=== PATIENT | female | born 1950 | race Caucasian/White ===

== ENCOUNTER 2016-08-30 18:07 | Emergency (ER) | payer OTHER ==
[~2016-08-30] VITALS: Ht 152.4 cm; Wt 67.1 kg
[~2016-08-30 18:07] MED LIST: 384 PO; ALAVERT10 M1 PO; ALBUD HHN; ANT25 PO; ASPIR 8181 MG PO; ASPIRIN ADULT L81 M1 PO; ATA25 PO; BACLOFEN10 MG PO; BACO TOP; BACTRIM; BACTRIM DS1 TAB PO; CARVEDILOL12.5 M1 PO; COLACE100 MG PO; CORE25 PO; CYCLOBENZAPRINE10 M2 PO; ELTROXIN PO; ENALAPRIL20 MG PO; ESCITALOPRAM10 M1 PO; GLIPIZIDE2.5 M1; GLIPIZIDE5 MG PO; HIBICLENS118 ML TOP; HUMULIN R100 U/1 M1 SC; HYDROCHLOROTH12.5 M1 PO; HYDROXYZINE50 M1 PO; KEFLEX500 MG PO; LAC PO; LANTUS SOLOS100 U/M1 SQ; LEVOTHROID SOD0.1 MG PO; LEXAPRO10 MG PO; LIPI10 PO; LOTRIMIN AF1% TOP; MECLIZINE HYDRO25 M1 PO; METFORMIN HCL1000 MG PO; METFORMIN HCL850 MG PO; NEU300 PO; NORCO1 TA2 PO; NOVI SQ; NOVOLOG100 U/ML SC; OXYBUTYNIN CHLOR PO; OXYBUTYNIN CHLOR5 MG PO; OXYBUTYNIN5 M1 PO; PRI20 PO; SANOINT TOP; SUDOGEST PO; TRAMADOL50 MG PO; TRICOR145 M1 PO; VANCOMYCIN1 GM/200 M IV; ZES20 PO; ZOCOR20 MG PO
[2016-08-30 18:50] LABS: BASOPHIL % 0.3 % (0-2); PLATELET COUNT 173 x10^3mcL (130-400); RED CELL DISTRIBUTION WIDTH 12.7 % (11.5-14.5)
[2016-08-30 19:05] LABS: ALBUMIN 3.5 g/dL (3.4-5.0); BILIRUBIN TOTAL 0.7 mg/dL (0.20-1.00); CARBON DIOXIDE 31.6 mmol/L (21-32); CREATININE SERUM 1.1 mg/dL (0.6-1.0); POTASSIUM SERUM 4.1 mmol/L (3.5-5.1); TOTAL PROTEIN, SERUM 6.9 g/dL (6.4-8.2)
[2016-08-30 22:08] VITALS: BP 146/85
== END 2016-08-30 22:08 | disposition home or self-care (01) ==
LOC: ED 18:07
PROVIDERS: Emergency Medicine
DX: I16.0 Hypertensive urgency (principal); G44.209 Tension-type headache, unspecified, not intractable; M79.7 Fibromyalgia; G43.909 Migraine, unspecified, not intractable, without status migrainosus; M54.12 Radiculopathy, cervical region; N31.9 Neuromuscular dysfunction of bladder, unspecified
CPT/HCPCS: 83880; J2765

== ENCOUNTER → 2016-09-29 | Emergency (ER) | payer OTHER ==
[2016-09-30] VITALS: BP 155/87
== END ==
LOC: ED 20:37
DX: S83.91XA Sprain of unspecified site of right knee, initial encounter (principal); S83.92XA Sprain of unspecified site of left knee, initial encounter; M79.675 Pain in left toe(s); M79.674 Pain in right toe(s); I11.0 Hypertensive heart disease with heart failure; E11.9 Type 2 diabetes mellitus without complications; J44.9 Chronic obstructive pulmonary disease, unspecified; K21.9 Gastro-esophageal reflux disease without esophagitis; K58.9 Irritable bowel syndrome, unspecified; H40.9 Unspecified glaucoma; G62.9 Polyneuropathy, unspecified; M54.12 Radiculopathy, cervical region; M79.7 Fibromyalgia; M19.90 Unspecified osteoarthritis, unspecified site; G43.909 Migraine, unspecified, not intractable, without status migrainosus; Z79.899 Other long term (current) drug therapy; Z88.0 Allergy status to penicillin; Z88.1 Allergy status to other antibiotic agents; W19.XXXA Unspecified fall, initial encounter; Y93.89 Activity, other specified; Y92.89 Other specified places as the place of occurrence of the external cause; Y99.8 Other external cause status

== ENCOUNTER 2016-10-28 13:28 | Inpatient (IN) | payer OTHER ==
[~2016-10-28] VITALS: Ht 154.9 cm; Wt 77.1 kg
[2016-10-28 13:53] LABS: BASOPHIL % 0.5 % (0-2); PLATELET COUNT 286 x10^3mcL (130-400); RED CELL DISTRIBUTION WIDTH 13.6 % (11.5-14.5)
[2016-10-28 14:04] LABS: AMPHETAMINE QUAL UR NONE DETECTED (NEG <=1000)
[2016-10-28 14:18] LABS: ALKALINE PHOSPHATASE 163 U/L (46-116); ALT/SGPT 37 U/L (14-59); AST/SGOT 44 U/L (15-37); BILIRUBIN TOTAL 1.36 mg/dL (0.20-1.00); CALCIUM 8.7 mg/dL (8.5-10.1); CARBON DIOXIDE 10.9 mmol/L (21-32); CHLORIDE SERUM 86 mmol/L (98-107); CHOLESTEROL 173 mg/dL (<200); CREATININE SERUM 1.4 mg/dL (0.6-1.0); GFR1 40 mL/min; POTASSIUM SERUM 5.5 mmol/L (3.5-5.1); TOTAL PROTEIN, SERUM 6.5 g/dL (6.4-8.2)
[2016-10-28 14:22] LABS: ALBUMIN 3.1 g/dL (3.4-5.0); GLUCOSE SERUM 662 mg/dL (74-106); SODIUM SERUM 123 mmol/L (136-145)
[2016-10-28 15:47] LABS: CHOLESTEROL/HDL RATIO 4.4
[2016-10-28 15:58] LABS: T3 TOTAL 0.8 ng/mL
[2016-10-28 16:04] LABS: FREE T4 1.7 ng/dL (0.76-1.46); FREE THYROXINE INDEX 3.5 ug/dL (1.4-4.5); T4(THYROXINE) 9.3 ug/dL (4.7-13.3)
[2016-10-28 16:17] VITALS: BP 116/52
[2016-10-28 16:20] VITALS: BP 116/52
[2016-10-28 17:03] LABS: CALCIUM 7.7 mg/dL (8.5-10.1); CARBON DIOXIDE 17.4 mmol/L (21-32); CREATININE SERUM 1.2 mg/dL (0.6-1.0); MAGNESIUM 1.4 mg/dL (1.8-2.4); PHOSPHOROUS 3.2 mg/dL (2.5-4.9); POTASSIUM SERUM 3.8 mmol/L (3.5-5.1)
[2016-10-28 17:29] VITALS: BP 116/52
[2016-10-28 18:31] VITALS: BP 115/44
[2016-10-28 20:36] LABS: CARBON DIOXIDE 26.5 mmol/L (21-32); CREATININE SERUM 1.1 mg/dL (0.6-1.0); MAGNESIUM 1.5 mg/dL (1.8-2.4); POTASSIUM SERUM 3.6 mmol/L (3.5-5.1)
[2016-10-28 21:47] VITALS: BP 138/53
[2016-10-29 00:28] LABS: CALCIUM 8.2 mg/dL (8.5-10.1); MAGNESIUM 1.5 mg/dL (1.8-2.4); PHOSPHOROUS 2.3 mg/dL (2.5-4.9); POTASSIUM SERUM 3.1 mmol/L (3.5-5.1)
[2016-10-29 00:29] LABS: BILIRUBIN DIRECT 0.33 mg/dL (0.0-0.2); BILIRUBIN TOTAL 0.8 mg/dL (0.20-1.00)
[2016-10-29 06:36] VITALS: BP 135/64
[2016-10-29 09:32] VITALS: BP 130/51
[2016-10-29 10:51] LABS: UA SPECIFIC GRAVITY >=1.030 (1.005-1.035); microscopic required? YES; urine erythrocyte 2+ (NEGATIVE)
[2016-10-29 11:14] LABS: BASOPHIL % 0.2 % (0-2); RED CELL DISTRIBUTION WIDTH 13.9 % (11.5-14.5)
[2016-10-29 11:34] LABS: PLATELET COUNT 120 x10^3mcL (130-400)
[2016-10-29 13:34] VITALS: BP 88/40
[2016-10-29 17:39] VITALS: BP 122/43
[2016-10-29 21:16] VITALS: BP 132/69
[2016-10-30] VITALS (7 sets, daily range): BP systolic 136–188; BP diastolic 49–86
[2016-10-30 06:06] LABS: BASOPHIL % 0.3 % (0-2); RED CELL DISTRIBUTION WIDTH 14.1 % (11.5-14.5)
[2016-10-30 06:08] LABS: PLATELET COUNT 113 x10^3mcL (130-400)
[2016-10-30 06:34] LABS: CALCIUM 7.8 mg/dL (8.5-10.1); CARBON DIOXIDE 23.8 mmol/L (21-32); CHLORIDE SERUM 103 mmol/L (98-107); CREATININE SERUM 0.9 mg/dL (0.6-1.0); GFR1 > 60 mL/min; GLUCOSE SERUM 281 mg/dL (74-106); PHOSPHOROUS 2.9 mg/dL (2.5-4.9); POTASSIUM SERUM 3.2 mmol/L (3.5-5.1); SODIUM SERUM 135 mmol/L (136-145)
[2016-10-30 20:02] LABS: CALCIUM 7.8 mg/dL (8.5-10.1); CARBON DIOXIDE 26.1 mmol/L (21-32); CHLORIDE SERUM 104 mmol/L (98-107); CREATININE SERUM 0.8 mg/dL (0.6-1.0); GFR1 > 60 mL/min; GLUCOSE SERUM 334 mg/dL (74-106); POTASSIUM SERUM 4.3 mmol/L (3.5-5.1); SODIUM SERUM 135 mmol/L (136-145)
[2016-10-31 05:46] VITALS: BP 174/55
[2016-10-31 06:45] LABS: CALCIUM 8.1 mg/dL (8.5-10.1); CARBON DIOXIDE 23.9 mmol/L (21-32); CHLORIDE SERUM 110 mmol/L (98-107); CREATININE SERUM 0.8 mg/dL (0.6-1.0); GFR1 > 60 mL/min; GLUCOSE SERUM 271 mg/dL (74-106); POTASSIUM SERUM 4.3 mmol/L (3.5-5.1); SODIUM SERUM 142 mmol/L (136-145)
[2016-10-31 10:07] VITALS: BP 146/65
[2016-10-31 14:50] VITALS: BP 158/56
[2016-10-31 17:40] VITALS: BP 152/53
[2016-10-31 22:34] VITALS: BP 122/83
[2016-11-01 06:37] VITALS: BP 165/62
[2016-11-01 08:03] LABS: BASOPHIL % 0.3 % (0-2); RED CELL DISTRIBUTION WIDTH 14.1 % (11.5-14.5)
[2016-11-01 08:07] LABS: PLATELET COUNT 116 x10^3mcL (130-400)
[2016-11-01 08:16] LABS: CALCIUM 8.3 mg/dL (8.5-10.1); CARBON DIOXIDE 26.1 mmol/L (21-32); CHLORIDE SERUM 113 mmol/L (98-107); CREATININE SERUM 0.7 mg/dL (0.6-1.0); GFR1 > 60 mL/min; GLUCOSE SERUM 213 mg/dL (74-106); MAGNESIUM 1.6 mg/dL (1.8-2.4); POTASSIUM SERUM 4.2 mmol/L (3.5-5.1); SODIUM SERUM 145 mmol/L (136-145)
[2016-11-01 13:36] VITALS: BP 171/74
[2016-11-01 13:54] VITALS: BP 171/74
[2016-11-01 17:08] VITALS: BP 126/45
[2016-11-01 21:31] VITALS: BP 142/67
[2016-11-02 06:06] VITALS: BP 178/79
[2016-11-02 10:29] LABS: BASOPHIL % 0.4 % (0-2); PLATELET COUNT 145 x10^3mcL (130-400)
[2016-11-02 10:30] VITALS: BP 134/48
[2016-11-02 10:37] LABS: RED CELL DISTRIBUTION WIDTH 14.6 % (11.5-14.5)
[2016-11-02 10:42] LABS: CALCIUM 7.9 mg/dL (8.5-10.1); CARBON DIOXIDE 26.8 mmol/L (21-32); CHLORIDE SERUM 112 mmol/L (98-107); CREATININE SERUM 0.8 mg/dL (0.6-1.0); GFR1 > 60 mL/min; GLUCOSE SERUM 178 mg/dL (74-106); MAGNESIUM 1.6 mg/dL (1.8-2.4); POTASSIUM SERUM 4.3 mmol/L (3.5-5.1); SODIUM SERUM 145 mmol/L (136-145)
[2016-11-02 13:31] VITALS: BP 181/64
[2016-11-02 17:09] VITALS: BP 150/60
[2016-11-02 21:27] VITALS: BP 126/50
[2016-11-03 05:43] VITALS: BP 152/51
[2016-11-03 10:30] VITALS: BP 188/71
[2016-11-03 14:20] VITALS: BP 163/67
[2016-11-03 17:26] VITALS: Ht 154.9 cm; Wt 77.1 kg
[2016-11-03 18:10] VITALS: BP 185/65
[2016-11-03 21:50] VITALS: BP 139/57
[2016-11-04 06:05] VITALS: BP 136/59
[2016-11-04 07:27] LABS: CALCIUM 8.4 mg/dL (8.5-10.1); CARBON DIOXIDE 29.4 mmol/L (21-32); CHLORIDE SERUM 108 mmol/L (98-107); CREATININE SERUM 0.7 mg/dL (0.6-1.0); GFR1 > 60 mL/min; MAGNESIUM 1.7 mg/dL (1.8-2.4); POTASSIUM SERUM 3.9 mmol/L (3.5-5.1); SODIUM SERUM 140 mmol/L (136-145)
[2016-11-04 07:34] LABS: GLUCOSE SERUM 59 mg/dL (74-106)
[2016-11-04 10:07] VITALS: BP 158/63
[2016-11-04 18:12] VITALS: BP 180/76
[2016-11-04 21:11] VITALS: BP 173/72
[2016-11-04 22:26] VITALS: BP 116/78; BP 118/68
[2016-11-05 06:11] VITALS: BP 143/53
[2016-11-05 06:57] LABS: BASOPHIL % 0.5 % (0-2); PLATELET COUNT 175 x10^3mcL (130-400)
[2016-11-05 07:00] LABS: RED CELL DISTRIBUTION WIDTH 14.6 % (11.5-14.5)
[2016-11-05 07:04] LABS: CALCIUM 8.1 mg/dL (8.5-10.1); CARBON DIOXIDE 30.9 mmol/L (21-32); CHLORIDE SERUM 103 mmol/L (98-107); CREATININE SERUM 0.7 mg/dL (0.6-1.0); GFR1 > 60 mL/min; GLUCOSE SERUM 173 mg/dL (74-106); MAGNESIUM 1.9 mg/dL (1.8-2.4); PHOSPHOROUS 2.8 mg/dL (2.5-4.9); POTASSIUM SERUM 3.9 mmol/L (3.5-5.1); SODIUM SERUM 136 mmol/L (136-145)
[2016-11-05 09:49] VITALS: BP 137/54
[2016-11-05 18:12] VITALS: BP 197/82
[2016-11-05 19:14] VITALS: BP 121/53
[2016-11-05 21:15] VITALS: BP 136/61
[2016-11-06 06:45] VITALS: BP 165/65
[2016-11-06 06:50] VITALS: BP 242/92
[2016-11-06 07:07] VITALS: BP 125/49
[2016-11-06 09:53] VITALS: BP 106/47
[2016-11-06] MEDS ORDERED: LAC PO (10:00)
[2016-11-06] MEDS ORDERED: BACDS PO (10:00)
[2016-11-06] MEDS ORDERED: CORE25 PO (10:04)
[2016-11-06] MEDS ORDERED: MYCP TOP (10:09)
[2016-11-06 13:13] VITALS: BP 147/45
[2016-11-06 13:49] VITALS: BP 147/45
== END 2016-11-06 16:10 | DRG 853 ==
LOC: ED 13:28 → DU 14:56 → MU 14:56 → DU 15:58 → MU 11-03 21:11
PROVIDERS: Family Medicine; Specialist; ADMIT Family Medicine
PROC: 0HBRXZZ Excision of Toe Nail, External Approach (ICD-10-PCS; principal; 2016-10-30)
PROC: 0HBNXZZ Excision of Left Foot Skin, External Approach (ICD-10-PCS; principal; 2016-10-30)
PROC: 0JBP0ZZ Excision of Left Lower Leg Subcutaneous Tissue and Fascia, Open Approach (ICD-10-PCS; 2016-10-31)
DX: A41.9 Sepsis, unspecified organism (principal); J96.00 Acute respiratory failure, unspecified whether with hypoxia or hypercapnia; G93.41 Metabolic encephalopathy; N17.0 Acute kidney failure with tubular necrosis; E11.00 Type 2 diabetes mellitus with hyperosmolarity without nonketotic hyperglycemic-hyperosmolar coma (NKHHC); L97.829 Non-pressure chronic ulcer of other part of left lower leg with unspecified severity; N39.0 Urinary tract infection, site not specified; E87.1 Hypo-osmolality and hyponatremia; E87.2 Acidosis; E87.3 Alkalosis; E44.0 Moderate protein-calorie malnutrition; E11.622 Type 2 diabetes mellitus with other skin ulcer; E11.51 Type 2 diabetes mellitus with diabetic peripheral angiopathy without gangrene; E11.40 Type 2 diabetes mellitus with diabetic neuropathy, unspecified; E11.65 Type 2 diabetes mellitus with hyperglycemia; R65.20 Severe sepsis without septic shock; L30.4 Erythema intertrigo; B35.1 Tinea unguium; L84 Corns and callosities; E87.5 Hyperkalemia; I16.0 Hypertensive urgency; M17.12 Unilateral primary osteoarthritis, left knee; E03.9 Hypothyroidism, unspecified; Z79.82 Long term (current) use of aspirin; Z79.4 Long term (current) use of insulin; Z79.84 Long term (current) use of oral hypoglycemic drugs; Z91.14 Patient's other noncompliance with medication regimen; Z22.322 Carrier or suspected carrier of Methicillin resistant Staphylococcus aureus
CPT/HCPCS: 36600; 82962; 83880; 84439; 97110-GP; 97116-GP; 97530-GP; G0480; J0360; J1815; J1956; J2001; J2405; J3370; J3475; J3490; J7030; J7613; Q0092

== ENCOUNTER 2017-01-26 12:16 | Inpatient (IN) | payer OTHER ==
[~2017-01-26] VITALS: Ht 152.4 cm; Wt 67.2 kg
[~2017-01-26 12:16] MED LIST changes: +BACDS PO; +MYCP TOP
[2017-01-26 14:01] LABS: BASOPHIL % 0.1 % (0-2); PLATELET COUNT 137 x10^3mcL (130-400); RED CELL DISTRIBUTION WIDTH 13.4 % (11.5-14.5)
[2017-01-26 14:35] LABS: CALCIUM 8.8 mg/dL (8.5-10.1); CARBON DIOXIDE 29.4 mmol/L (21-32); CHLORIDE SERUM 100 mmol/L (98-107); CREATININE SERUM 0.9 mg/dL (0.6-1.0); GFR1 > 60 mL/min; GLUCOSE SERUM 427 mg/dL (74-106); POTASSIUM SERUM 4.4 mmol/L (3.5-5.1); SODIUM SERUM 135 mmol/L (136-145)
[2017-01-26 14:47] LABS: ALKALINE PHOSPHATASE 171 U/L (46-116); ALT/SGPT 21 U/L (14-59); AST/SGOT 18 U/L (15-37); BILIRUBIN TOTAL 0.6 mg/dL (0.20-1.00); CHOLESTEROL 185 mg/dL (<200); HDL CHOLESTEROL 53 mg/dL (40-60); MAGNESIUM 1.8 mg/dL (1.8-2.4); PHOSPHOROUS 3.3 mg/dL (2.5-4.9); TOTAL PROTEIN, SERUM 6.6 g/dL (6.4-8.2)
[2017-01-26 14:48] LABS: ALBUMIN 3.2 g/dL (3.4-5.0)
[2017-01-26 15:57] VITALS: BP 165/66
[2017-01-26 16:06] LABS: CHOLESTEROL/HDL RATIO 3.4
[2017-01-26 16:14] LABS: T3 TOTAL 1.02 ng/mL
[2017-01-26 16:18] LABS: FREE T4 1.26 ng/dL (0.76-1.46); FREE THYROXINE INDEX 3.8 ug/dL (1.4-4.5); T4(THYROXINE) 9.4 ug/dL (4.7-13.3)
[2017-01-26 16:48] VITALS: Ht 152.4 cm; Wt 67.2 kg
[2017-01-26 18:00] LABS: microscopic required? YES; urine erythrocyte NEGATIVE (NEGATIVE)
[2017-01-26] MEDS ORDERED: LANTI SQ (18:43)
[2017-01-26 20:43] VITALS: BP 186/67
[2017-01-26 23:42] VITALS: BP 192/87
[2017-01-27 01:57] VITALS: BP 107/55
[2017-01-27 05:28] VITALS: BP 138/56
[2017-01-27 06:31] LABS: CALCIUM 8.6 mg/dL (8.5-10.1); CARBON DIOXIDE 26.8 mmol/L (21-32); CHLORIDE SERUM 104 mmol/L (98-107); CREATININE SERUM 0.9 mg/dL (0.6-1.0); GFR1 > 60 mL/min; GLUCOSE SERUM 119 mg/dL (74-106); POTASSIUM SERUM 3.9 mmol/L (3.5-5.1); SODIUM SERUM 138 mmol/L (136-145)
[2017-01-27 08:53] VITALS: BP 211/71
[2017-01-27 13:55] VITALS: BP 157/63
[2017-01-27 17:08] VITALS: BP 119/52
[2017-01-27 22:28] VITALS: BP 162/51
[2017-01-28 06:11] VITALS: BP 215/77
[2017-01-28 06:38] LABS: BASOPHIL % 0.4 % (0-2); PLATELET COUNT 143 x10^3mcL (130-400); RED CELL DISTRIBUTION WIDTH 13.5 % (11.5-14.5)
[2017-01-28 06:42] LABS: CALCIUM 8.8 mg/dL (8.5-10.1); CARBON DIOXIDE 26.8 mmol/L (21-32); POTASSIUM SERUM 4.7 mmol/L (3.5-5.1)
[2017-01-28 06:53] VITALS: BP 117/47
[2017-01-28 08:30] VITALS: BP 124/61
[2017-01-28 14:00] VITALS: BP 156/57
[2017-01-28 18:18] VITALS: BP 162/90
[2017-01-28 20:48] VITALS: BP 157/70
[2017-01-29 05:30] VITALS: BP 195/76
[2017-01-29 06:14] LABS: CALCIUM 8.6 mg/dL (8.5-10.1); CARBON DIOXIDE 28.6 mmol/L (21-32); POTASSIUM SERUM 4.6 mmol/L (3.5-5.1)
[2017-01-29 10:31] VITALS: BP 169/87
[2017-01-29 11:34] VITALS: BP 178/95
[2017-01-29 14:10] VITALS: BP 176/72
[2017-01-29 17:24] VITALS: BP 146/72
[2017-01-29 21:23] VITALS: BP 182/81
[2017-01-30] VITALS (10 sets, daily range): BP systolic 95–195; BP diastolic 40–94
[2017-01-30 06:06] LABS: CALCIUM 8.6 mg/dL (8.5-10.1); CARBON DIOXIDE 28.8 mmol/L (21-32); CHLORIDE SERUM 105 mmol/L (98-107); CREATININE SERUM 0.8 mg/dL (0.6-1.0); GFR1 > 60 mL/min; GLUCOSE SERUM 213 mg/dL (74-106); POTASSIUM SERUM 4.2 mmol/L (3.5-5.1); SODIUM SERUM 140 mmol/L (136-145)
[2017-01-30 06:08] LABS: ALBUMIN 2.7 g/dL (3.4-5.0)
[2017-01-30] MEDS ORDERED: ISO10 PO (14:45)
[2017-01-30] MEDS ORDERED: NOR10 PO (15:04)
== END 2017-01-30 18:55 | DRG 40 ==
LOC: ED 12:16 → DU 14:59
PROVIDERS: Emergency Medicine; Family Medicine; ADMIT Family Medicine
PROC: 0JBQ0ZZ Excision of Right Foot Subcutaneous Tissue and Fascia, Open Approach (ICD-10-PCS; principal; 2017-01-26)
DX: I67.4 Hypertensive encephalopathy (principal); N17.0 Acute kidney failure with tubular necrosis; E43 Unspecified severe protein-calorie malnutrition; E87.1 Hypo-osmolality and hyponatremia; E11.621 Type 2 diabetes mellitus with foot ulcer; E11.42 Type 2 diabetes mellitus with diabetic polyneuropathy; L97.519 Non-pressure chronic ulcer of other part of right foot with unspecified severity; E11.51 Type 2 diabetes mellitus with diabetic peripheral angiopathy without gangrene; E11.65 Type 2 diabetes mellitus with hyperglycemia; M21.621 Bunionette of right foot; M71.22 Synovial cyst of popliteal space [Baker], left knee; M17.12 Unilateral primary osteoarthritis, left knee; E78.5 Hyperlipidemia, unspecified; E03.9 Hypothyroidism, unspecified; F32.9 Major depressive disorder, single episode, unspecified; Z68.29 Body mass index [BMI] 29.0-29.9, adult; Z79.4 Long term (current) use of insulin; Z79.82 Long term (current) use of aspirin
CPT/HCPCS: 82962; 83880; 84439; 97110-GP; 97116-GP; 97530-GP; J0360; J1815; J1885; J2405; J2800; J3010; J7030; J7613; J7620; Q0092; Q0163

== ENCOUNTER 2017-09-26 11:44 | Inpatient (IN) | payer OTHER ==
[~2017-09-26] VITALS: Ht 152.4 cm; Wt 108.9 kg
[~2017-09-26 11:44] MED LIST changes: +ISO10 PO; +LANTI SQ; +NOR10 PO
[2017-09-26 12:41] LABS: BASOPHIL % 0.4 % (0-2); PLATELET COUNT 208 x10^3mcL (130-400)
[2017-09-26 12:42] LABS: RED CELL DISTRIBUTION WIDTH 14.7 % (11.5-14.5)
[2017-09-26 12:52] LABS: CALCIUM 8.6 mg/dL (8.5-10.1); CARBON DIOXIDE 27.8 mmol/L (21-32); CHLORIDE SERUM 106 mmol/L (98-107); CREATININE SERUM 0.9 mg/dL (0.6-1.0); GFR1 > 60 mL/min; GLUCOSE SERUM 140 mg/dL (74-106); POTASSIUM SERUM 4.9 mmol/L (3.5-5.1); SODIUM SERUM 138 mmol/L (136-145)
[2017-09-26 12:57] LABS: ALKALINE PHOSPHATASE 138 U/L (46-116); ALT/SGPT 25 U/L (14-59); AST/SGOT 33 U/L (15-37); BILIRUBIN TOTAL 0.55 mg/dL (0.20-1.00); LIPASE 35 IU/L (73-393); TOTAL PROTEIN, SERUM 6.4 g/dL (6.4-8.2)
[2017-09-26 13:38] LABS: microscopic required? YES; urine erythrocyte TRACE (NEGATIVE)
[2017-09-26] MEDS ORDERED: BACLOFEN10 MG PO (15:06)
[2017-09-26] MEDS ORDERED: GLIPIZIDE5 M2 PO (15:07)
[2017-09-26] MEDS ORDERED: LEADER MELATONIN5 MG PO (15:09)
[2017-09-26] MEDS ORDERED: LANTI SQ (15:09)
[2017-09-26] MEDS ORDERED: COSOPT OCUMETER10 ML OU (15:13)
[2017-09-26] MEDS ORDERED: KETOROLAC TROMET5 M1 OD (15:16)
[2017-09-26] MEDS ORDERED: PRED FORTE1 ML OD (15:18)
[2017-09-26 16:24] VITALS: BP 97/73
[2017-09-26 16:32] LABS: MAGNESIUM 2.1 mg/dL (1.8-2.4); PHOSPHOROUS 3.7 mg/dL (2.5-4.9)
[2017-09-26 16:36] LABS: CHOLESTEROL/HDL RATIO 2.4; FREE T4 1.41 ng/dL (0.76-1.46); FREE THYROXINE INDEX 3.6 ug/dL (1.4-4.5); T4(THYROXINE) 9.6 ug/dL (4.7-13.3)
[2017-09-26 16:50] LABS: T3 TOTAL 0.81 ng/mL
[2017-09-26 17:36] VITALS: BP 97/73
[2017-09-26 17:41] LABS: AMPHETAMINE QUAL UR NONE DETECTED (NEG <=1000)
[2017-09-26 18:06] VITALS: BP 136/53
[2017-09-26 21:10] VITALS: BP 151/60
[2017-09-27 06:00] VITALS: BP 122/54
[2017-09-27 06:36] LABS: BASOPHIL % 0.4 % (0-2); PLATELET COUNT 220 x10^3mcL (130-400); RED CELL DISTRIBUTION WIDTH 15.1 % (11.5-14.5)
[2017-09-27 06:53] LABS: CALCIUM 8.7 mg/dL (8.5-10.1); CARBON DIOXIDE 28.8 mmol/L (21-32); CHLORIDE SERUM 108 mmol/L (98-107); CREATININE SERUM 0.9 mg/dL (0.6-1.0); GFR1 > 60 mL/min; GLUCOSE SERUM 63 mg/dL (74-106); MAGNESIUM 2.1 mg/dL (1.8-2.4); PHOSPHOROUS 3.8 mg/dL (2.5-4.9); POTASSIUM SERUM 4.5 mmol/L (3.5-5.1); SODIUM SERUM 142 mmol/L (136-145)
[2017-09-27 07:54] VITALS: Ht 152.4 cm; Wt 108.9 kg
[2017-09-27 10:34] VITALS: BP 147/62
[2017-09-27 14:00] VITALS: BP 146/64
[2017-09-27 18:17] VITALS: BP 135/71
[2017-09-27 20:51] VITALS: BP 148/68
[2017-09-28 05:32] VITALS: BP 125/63
[2017-09-28 07:19] LABS: BASOPHIL % 0.3 % (0-2); CALCIUM 8.4 mg/dL (8.5-10.1); CHLORIDE SERUM 107 mmol/L (98-107); CREATININE SERUM 0.9 mg/dL (0.6-1.0); GFR1 > 60 mL/min; GLUCOSE SERUM 76 mg/dL (74-106); PHOSPHOROUS 4.4 mg/dL (2.5-4.9); PLATELET COUNT 198 x10^3mcL (130-400); POTASSIUM SERUM 4.2 mmol/L (3.5-5.1); RED CELL DISTRIBUTION WIDTH 14.5 % (11.5-14.5); SODIUM SERUM 141 mmol/L (136-145)
[2017-09-28 08:41] VITALS: BP 143/66
[2017-09-28 13:10] VITALS: BP 123/59
[2017-09-28 17:06] VITALS: BP 129/63
[2017-09-28 20:59] VITALS: BP 150/67
[2017-09-29 06:02] LABS: BILIRUBIN TOTAL 0.51 mg/dL (0.20-1.00); CALCIUM 8.5 mg/dL (8.5-10.1); CARBON DIOXIDE 29.8 mmol/L (21-32); POTASSIUM SERUM 4.4 mmol/L (3.5-5.1)
[2017-09-29 06:14] LABS: ALBUMIN 2.8 g/dL (3.4-5.0); TOTAL PROTEIN, SERUM 6.1 g/dL (6.4-8.2)
[2017-09-29 06:23] VITALS: BP 138/72
[2017-09-29 06:58] LABS: BASOPHIL % 0.3 % (0-2); PLATELET COUNT 176 x10^3mcL (130-400)
[2017-09-29 07:13] LABS: RED CELL DISTRIBUTION WIDTH 14.7 % (11.5-14.5)
[2017-09-29 08:25] VITALS: BP 170/83
[2017-09-29 12:43] VITALS: BP 140/68
[2017-09-29 14:27] VITALS: BP 123/73
[2017-09-29 16:49] VITALS: BP 120/71
[2017-09-29 21:23] VITALS: BP 100/58
[2017-09-30 05:21] VITALS: BP 111/66
[2017-09-30 06:42] LABS: CALCIUM 8.4 mg/dL (8.5-10.1); CARBON DIOXIDE 33.1 mmol/L (21-32); POTASSIUM SERUM 4.6 mmol/L (3.5-5.1)
[2017-09-30 06:50] LABS: BASOPHIL % 0.4 % (0-2); PLATELET COUNT 196 x10^3mcL (130-400)
[2017-09-30 07:07] LABS: RED CELL DISTRIBUTION WIDTH 14.8 % (11.5-14.5)
[2017-09-30 10:26] VITALS: BP 173/79
[2017-09-30 12:26] VITALS: BP 125/68
[2017-09-30 13:05] VITALS: BP 125/68
[2017-09-30 16:35] VITALS: BP 146/65
[2017-09-30 20:31] VITALS: BP 110/65
[2017-10-01 04:34] VITALS: BP 145/70
[2017-10-01 06:31] LABS: CALCIUM 8.5 mg/dL (8.5-10.1); CARBON DIOXIDE 30.5 mmol/L (21-32); CHLORIDE SERUM 105 mmol/L (98-107); CREATININE SERUM 0.9 mg/dL (0.6-1.0); GFR1 > 60 mL/min; GLUCOSE SERUM 154 mg/dL (74-106); POTASSIUM SERUM 4.1 mmol/L (3.5-5.1); SODIUM SERUM 140 mmol/L (136-145)
[2017-10-01 06:35] LABS: BASOPHIL % 0.2 % (0-2); PLATELET COUNT 189 x10^3mcL (130-400)
[2017-10-01 06:46] LABS: RED CELL DISTRIBUTION WIDTH 14.6 % (11.5-14.5)
[2017-10-01] MEDS ORDERED: ROC1I IM ×2 (08:40→16:34)
[2017-10-01] MEDS ORDERED: LAC PO (08:41)
[2017-10-01] MEDS ORDERED: LEVEMIR100 U/M1 SQ (08:50)
[2017-10-01 10:44] VITALS: BP 108/53
[2017-10-01 11:44] VITALS: BP 108/53
[2017-10-01 13:51] VITALS: BP 148/50
[2017-10-01] MEDS ORDERED: ROC1I IV (16:46)
== END 2017-10-01 17:30 | DRG 291 ==
LOC: ED 11:44 → DU 15:06
PROVIDERS: Emergency Medicine; Family Medicine
DX: I11.0 Hypertensive heart disease with heart failure (principal); N17.0 Acute kidney failure with tubular necrosis; L03.311 Cellulitis of abdominal wall; J44.1 Chronic obstructive pulmonary disease with (acute) exacerbation; E44.0 Moderate protein-calorie malnutrition; Z68.42 Body mass index [BMI] 45.0-49.9, adult; E66.2 Morbid (severe) obesity with alveolar hypoventilation; J90 Pleural effusion, not elsewhere classified; I50.43 Acute on chronic combined systolic (congestive) and diastolic (congestive) heart failure; E03.9 Hypothyroidism, unspecified; F32.9 Major depressive disorder, single episode, unspecified; M19.90 Unspecified osteoarthritis, unspecified site; E11.65 Type 2 diabetes mellitus with hyperglycemia; Z90.89 Acquired absence of other organs; Z88.8 Allergy status to other drugs, medicaments and biological substances; Z88.0 Allergy status to penicillin; Z90.710 Acquired absence of both cervix and uterus; Z79.4 Long term (current) use of insulin; M79.7 Fibromyalgia; K21.9 Gastro-esophageal reflux disease without esophagitis; G43.909 Migraine, unspecified, not intractable, without status migrainosus; Z83.3 Family history of diabetes mellitus; Z82.3 Family history of stroke; Z82.49 Family history of ischemic heart disease and other diseases of the circulatory system; H40.9 Unspecified glaucoma; H26.9 Unspecified cataract; R31.9 Hematuria, unspecified; E78.5 Hyperlipidemia, unspecified
CPT/HCPCS: 82962; 83880; 84439; 97110-GP; 97116-GP; 97530-GP; J0696; J1644; J1815; J1940; J2270; J2405; J7040; J7620; J8597; P9047; Q0092; Q9967

== ENCOUNTER 2017-11-10 14:59 | Inpatient (IN) | payer OTHER ==
[~2017-11-10] VITALS: Ht 152.4 cm; Wt 92.2 kg
[~2017-11-10 14:59] MED LIST changes: +COSOPT OCUMETER10 ML OU; +GLIPIZIDE5 M2 PO; +KETOROLAC TROMET5 M1 OD; +LEADER MELATONIN5 MG PO; +LEVEMIR100 U/M1 SQ; -LEVOTHROID SOD0.1 MG PO; +PRED FORTE1 ML OD; +ROC1I IM; +ROC1I IV; +[UNRECOGNIZED DRUG - OTHER]
[2017-11-10 16:22] LABS: PLATELET COUNT 206 x10^3mcL (130-400)
[2017-11-10 16:33] LABS: microscopic required? YES; urine erythrocyte 3+ (NEGATIVE)
[2017-11-10 16:39] LABS: BILIRUBIN TOTAL 0.7 mg/dL (0.20-1.00); CALCIUM 8.3 mg/dL (8.5-10.1); CARBON DIOXIDE 20.9 mmol/L (21-32); POTASSIUM SERUM 4.5 mmol/L (3.5-5.1); TOTAL PROTEIN, SERUM 6.2 g/dL (6.4-8.2)
[2017-11-10 16:43] LABS: ALBUMIN 1.7 g/dL (3.4-5.0)
[2017-11-10 16:46] LABS: RED CELL DISTRIBUTION WIDTH 16.3 % (11.5-14.5)
[2017-11-10] MEDS ORDERED: LIPI10 PO (17:16)
[2017-11-10 18:11] LABS: SEGMENTED NEUTROPHILS 88 % (37-75)
[2017-11-10 18:12] LABS: BAND NEUTROPHIL 3 % (0-10); MONOCYTE 4 % (0-7)
[2017-11-10 18:13] LABS: rbc morphology (normal/abnorm) ABNORMAL (NORMAL)
[2017-11-10 18:14] LABS: PLATELET MORPHOLOGY PLATELETS NORMAL
[2017-11-10 18:42] LABS: MAGNESIUM 2.1 mg/dL (1.8-2.4); PHOSPHOROUS 4.8 mg/dL (2.5-4.9)
[2017-11-10 18:49] LABS: FREE T4 1.23 ng/dL (0.76-1.46); FREE THYROXINE INDEX 2.1 ug/dL (1.4-4.5); T4(THYROXINE) 5.4 ug/dL (4.7-13.3)
[2017-11-10 19:33] VITALS: BP 96/55
[2017-11-10 20:03] LABS: CHOLESTEROL/HDL RATIO 11.3
[2017-11-10 20:58] LABS: T3 TOTAL 0.37 ng/mL
[2017-11-10 22:30] VITALS: BP 105/58
[2017-11-10 23:00] VITALS: BP 106/60
[2017-11-11 03:05] VITALS: BP 107/69
[2017-11-11 07:19] VITALS: BP 104/53
[2017-11-11 08:27] LABS: PLATELET COUNT 211 x10^3mcL (130-400)
[2017-11-11 08:34] LABS: CALCIUM 7.2 mg/dL (8.5-10.1); CARBON DIOXIDE 17.5 mmol/L (21-32); CREATININE SERUM 2.3 mg/dL (0.6-1.0); MAGNESIUM 2.1 mg/dL (1.8-2.4); PHOSPHOROUS 5.1 mg/dL (2.5-4.9); POTASSIUM SERUM 4.6 mmol/L (3.5-5.1)
[2017-11-11 11:05] VITALS: BP 113/67
[2017-11-11 13:42] LABS: SEGMENTED NEUTROPHILS 89 % (37-75)
[2017-11-11 13:43] LABS: BAND NEUTROPHIL 2 % (0-10); MONOCYTE 4 % (0-7)
[2017-11-11 13:46] LABS: rbc morphology (normal/abnorm) ABNORMAL (NORMAL)
[2017-11-11 13:47] LABS: PLATELET MORPHOLOGY PLATELETS NORMAL
[2017-11-11 15:05] VITALS: BP 98/50
[2017-11-11 19:15] VITALS: BP 118/67
[2017-11-11 21:59] VITALS: BP 112/68
[2017-11-12 05:22] VITALS: BP 100/62
[2017-11-12 09:33] VITALS: BP 107/61
[2017-11-12 10:34] LABS: PLATELET COUNT 211 x10^3mcL (130-400)
[2017-11-12 10:43] LABS: CARBON DIOXIDE 21.3 mmol/L (21-32); CREATININE SERUM 1.7 mg/dL (0.6-1.0); MAGNESIUM 2.4 mg/dL (1.8-2.4); PHOSPHOROUS 3.9 mg/dL (2.5-4.9); POTASSIUM SERUM 4.6 mmol/L (3.5-5.1)
[2017-11-12 11:04] LABS: BAND NEUTROPHIL 5 % (0-10); BASOPHIL 0 % (0-2); MONOCYTE 3 % (0-7); PLATELET MORPHOLOGY PLATELETS NORMAL; SEGMENTED NEUTROPHILS 87 % (37-75); rbc morphology (normal/abnorm) ABNORMAL (NORMAL)
[2017-11-12 14:08] VITALS: BP 100/67
[2017-11-12 17:13] VITALS: BP 97/55
[2017-11-12 21:16] VITALS: BP 106/55
[2017-11-13 05:25] VITALS: BP 123/61
[2017-11-13 06:44] LABS: CALCIUM 7.6 mg/dL (8.5-10.1); CARBON DIOXIDE 24.2 mmol/L (21-32); CREATININE SERUM 1.2 mg/dL (0.6-1.0); MAGNESIUM 2.2 mg/dL (1.8-2.4); PHOSPHOROUS 2.6 mg/dL (2.5-4.9); PLATELET COUNT 228 x10^3mcL (130-400); POTASSIUM SERUM 4.5 mmol/L (3.5-5.1)
[2017-11-13 06:58] LABS: RED CELL DISTRIBUTION WIDTH 16.2 % (11.5-14.5)
[2017-11-13 08:47] VITALS: BP 128/58
[2017-11-13 12:46] LABS: ATYPICAL LYMPH 1 %; BAND NEUTROPHIL 3 % (0-10); BASOPHIL 0 % (0-2); MONOCYTE 2 % (0-7); SEGMENTED NEUTROPHILS 86 % (37-75)
[2017-11-13 12:48] LABS: rbc morphology (normal/abnorm) ABNORMAL (NORMAL)
[2017-11-13 12:49] LABS: PLATELET MORPHOLOGY PLATELETS DECREASED
[2017-11-13 13:24] VITALS: BP 135/67
[2017-11-13 14:43] VITALS: BP 135/67
[2017-11-13 17:18] VITALS: BP 115/60
[2017-11-13 20:21] VITALS: BP 142/72
[2017-11-14 05:23] VITALS: BP 130/57
[2017-11-14 06:51] LABS: PLATELET COUNT 269 x10^3mcL (130-400)
[2017-11-14 06:56] LABS: RED CELL DISTRIBUTION WIDTH 16.2 % (11.5-14.5)
[2017-11-14 07:10] LABS: CALCIUM 8.2 mg/dL (8.5-10.1); CARBON DIOXIDE 24.8 mmol/L (21-32); PHOSPHOROUS 2.1 mg/dL (2.5-4.9); POTASSIUM SERUM 4.5 mmol/L (3.5-5.1)
[2017-11-14 09:40] VITALS: BP 133/67
[2017-11-14 09:55] LABS: BAND NEUTROPHIL 1 % (0-10); BASOPHIL 0 % (0-2); METAMYELOCTE 2 % (0-2); MYELOCYTE 3 % (0-2)
[2017-11-14 09:56] LABS: MONOCYTE 3 % (0-7)
[2017-11-14 09:57] LABS: SEGMENTED NEUTROPHILS 80 % (37-75)
[2017-11-14 09:59] LABS: rbc morphology (normal/abnorm) ABNORMAL (NORMAL)
[2017-11-14 13:45] VITALS: BP 119/58
[2017-11-14 17:55] VITALS: BP 132/71
[2017-11-14 20:33] VITALS: BP 125/63
[2017-11-15 05:56] VITALS: BP 138/75
[2017-11-15 06:14] LABS: PLATELET COUNT 288 x10^3mcL (130-400)
[2017-11-15 06:30] LABS: CALCIUM 7.3 mg/dL (8.5-10.1); CHLORIDE SERUM 107 mmol/L (98-107); CREATININE SERUM 0.8 mg/dL (0.6-1.0); GFR1 > 60 mL/min; GLUCOSE SERUM 100 mg/dL (74-106); MAGNESIUM 1.7 mg/dL (1.8-2.4); PHOSPHOROUS 2.7 mg/dL (2.5-4.9); POTASSIUM SERUM 4.7 mmol/L (3.5-5.1); SODIUM SERUM 139 mmol/L (136-145)
[2017-11-15 07:02] LABS: RED CELL DISTRIBUTION WIDTH 16.1 % (11.5-14.5)
[2017-11-15 08:24] LABS: BAND NEUTROPHIL 8 % (0-10); BASOPHIL 0 % (0-2); METAMYELOCTE 3 % (0-2); MONOCYTE 7 % (0-7); MYELOCYTE 1 % (0-2); PLATELET MORPHOLOGY LARGE PLATELET SEEN; SEGMENTED NEUTROPHILS 66 % (37-75); rbc morphology (normal/abnorm) ABNORMAL (NORMAL)
[2017-11-15 09:01] VITALS: BP 152/80
[2017-11-15 13:47] VITALS: BP 137/61
[2017-11-15 16:23] VITALS: BP 124/73
[2017-11-15 19:42] VITALS: Ht 152.4 cm; Wt 92.2 kg
[2017-11-15 21:08] VITALS: BP 127/57
[2017-11-16 05:48] VITALS: BP 133/64
[2017-11-16 06:15] LABS: CALCIUM 7.7 mg/dL (8.5-10.1); CARBON DIOXIDE 25.3 mmol/L (21-32); CHLORIDE SERUM 106 mmol/L (98-107); CREATININE SERUM 0.8 mg/dL (0.6-1.0); GFR1 > 60 mL/min; GLUCOSE SERUM 107 mg/dL (74-106); PHOSPHOROUS 2.8 mg/dL (2.5-4.9); POTASSIUM SERUM 4.7 mmol/L (3.5-5.1); SODIUM SERUM 137 mmol/L (136-145)
[2017-11-16 06:27] LABS: PLATELET COUNT 309 x10^3mcL (130-400)
[2017-11-16 06:37] LABS: RED CELL DISTRIBUTION WIDTH 16.4 % (11.5-14.5)
[2017-11-16 09:32] VITALS: BP 118/76
[2017-11-16 09:53] LABS: BAND NEUTROPHIL 10 % (0-10); BASOPHIL 0 % (0-2); MONOCYTE 6 % (0-7); SEGMENTED NEUTROPHILS 72 % (37-75)
[2017-11-16 09:54] LABS: rbc morphology (normal/abnorm) ABNORMAL (NORMAL)
[2017-11-16 13:31] VITALS: BP 149/68
[2017-11-16 17:26] VITALS: BP 143/70
[2017-11-16 21:36] VITALS: BP 164/83
[2017-11-17 05:43] VITALS: BP 151/76
[2017-11-17 07:23] LABS: PLATELET COUNT 303 x10^3mcL (130-400)
[2017-11-17 07:25] LABS: CALCIUM 8.9 mg/dL (8.5-10.1); CARBON DIOXIDE 25.6 mmol/L (21-32); CHLORIDE SERUM 106 mmol/L (98-107); CREATININE SERUM 0.8 mg/dL (0.6-1.0); GFR1 > 60 mL/min; GLUCOSE SERUM 147 mg/dL (74-106); MAGNESIUM 1.6 mg/dL (1.8-2.4); PHOSPHOROUS 2.9 mg/dL (2.5-4.9); POTASSIUM SERUM 4.7 mmol/L (3.5-5.1); SODIUM SERUM 135 mmol/L (136-145)
[2017-11-17 07:30] LABS: RED CELL DISTRIBUTION WIDTH 16.3 % (11.5-14.5)
[2017-11-17 09:19] VITALS: BP 155/75
[2017-11-17 09:55] LABS: BAND NEUTROPHIL 9 % (0-10); BASOPHIL 0 % (0-2); MONOCYTE 5 % (0-7); SEGMENTED NEUTROPHILS 75 % (37-75)
[2017-11-17 09:56] LABS: rbc morphology (normal/abnorm) ABNORMAL (NORMAL)
[2017-11-17 13:32] VITALS: BP 164/82
[2017-11-17 16:55] VITALS: BP 148/71
[2017-11-17 20:43] VITALS: BP 155/77
[2017-11-18 05:13] VITALS: BP 158/82
[2017-11-18 07:27] LABS: BASOPHIL % 0.3 % (0-2); PLATELET COUNT 299 x10^3mcL (130-400)
[2017-11-18 07:36] LABS: RED CELL DISTRIBUTION WIDTH 16.4 % (11.5-14.5)
[2017-11-18 07:46] LABS: CALCIUM 7.3 mg/dL (8.5-10.1); CARBON DIOXIDE 25.2 mmol/L (21-32); CHLORIDE SERUM 107 mmol/L (98-107); CREATININE SERUM 0.8 mg/dL (0.6-1.0); GFR1 > 60 mL/min; GLUCOSE SERUM 111 mg/dL (74-106); MAGNESIUM 1.6 mg/dL (1.8-2.4); POTASSIUM SERUM 4.6 mmol/L (3.5-5.1); SODIUM SERUM 138 mmol/L (136-145)
[2017-11-18 08:04] VITALS: BP 158/82
[2017-11-18] MEDS ORDERED: VANCOMYCIN1 GM/1001 IV (11:48)
[2017-11-18 12:39] VITALS: BP 162/70
[2017-11-18 17:13] VITALS: BP 114/75
[2017-11-18 20:33] VITALS: BP 107/77
[2017-11-19 04:59] VITALS: BP 111/72
[2017-11-19 06:51] LABS: CALCIUM 7.6 mg/dL (8.5-10.1); CARBON DIOXIDE 26.1 mmol/L (21-32); CHLORIDE SERUM 108 mmol/L (98-107); CREATININE SERUM 0.7 mg/dL (0.6-1.0); GFR1 > 60 mL/min; GLUCOSE SERUM 79 mg/dL (74-106); POTASSIUM SERUM 4.4 mmol/L (3.5-5.1); SODIUM SERUM 139 mmol/L (136-145)
[2017-11-19 09:00] VITALS: BP 138/53
[2017-11-19 12:23] VITALS: BP 138/53
[2017-11-19 13:14] VITALS: BP 151/95
== END 2017-11-19 17:11 | DRG 871 ==
LOC: ED 14:59 → DU 17:35 → IC 19:07 → DU 11-11 19:31
PROVIDERS: Emergency Medicine; Internal Medicine; Internal Medicine Nephrology
DX: A41.9 Sepsis, unspecified organism (principal); I21.A1 Myocardial infarction type 2; N17.0 Acute kidney failure with tubular necrosis; G93.41 Metabolic encephalopathy; E43 Unspecified severe protein-calorie malnutrition; N39.0 Urinary tract infection, site not specified; I42.0 Dilated cardiomyopathy; J44.1 Chronic obstructive pulmonary disease with (acute) exacerbation; R65.20 Severe sepsis without septic shock; I11.9 Hypertensive heart disease without heart failure; R06.03 Acute respiratory distress; E11.65 Type 2 diabetes mellitus with hyperglycemia; K13.79 Other lesions of oral mucosa; E11.42 Type 2 diabetes mellitus with diabetic polyneuropathy; I48.2 Chronic atrial fibrillation; I87.2 Venous insufficiency (chronic) (peripheral); I65.23 Occlusion and stenosis of bilateral carotid arteries; K59.09 Other constipation; M79.7 Fibromyalgia; L85.3 Xerosis cutis; E78.1 Pure hyperglyceridemia; E03.9 Hypothyroidism, unspecified; F32.9 Major depressive disorder, single episode, unspecified; Z68.33 Body mass index [BMI] 33.0-33.9, adult; Z87.891 Personal history of nicotine dependence; Z79.84 Long term (current) use of oral hypoglycemic drugs; Z22.322 Carrier or suspected carrier of Methicillin resistant Staphylococcus aureus; Z79.82 Long term (current) use of aspirin
CPT/HCPCS: 36600; 83880; 84439; 87046; 87046-59; 92526-GN; 92610-GN; 94150; 97110-GP; 97530-GP; J1815; J1956; J3370; J3475; J3490; J7030; J7620; Q0092